=== PATIENT | male | born 1955 | race Caucasian/White ===

== ENCOUNTER 2021-02-12 09:44 | Day surgery (SDC) | payer BC ==
[2021-02-12] MEDS ORDERED: Sodium Chloride 0.9% 10 ML Syringe FLUSH PRN (09:45)
[2021-02-12] MEDS ORDERED: Lactated Ringers 1,000 ML IV SCH (09:45)
[2021-02-12] MEDS ORDERED: Midazolam 1 MG/ML 2 ML SDV ONE (10:38)
[2021-02-12] MEDS ORDERED: Propofol 200 MG/20 ML SDV ONE (10:38)
--- NOTE | 2021-02-12 10:41 | PCM.PN ---
- General Info Date of Service: 02/12/21 - Review of Systems Systems Review Comment:: 65-year-old male here for screening colonoscopy. His last colon exam was almost 10 years ago. He is medically stable to proceed today. His recent history and physical is reviewed and no significant changes are noted. I have discussed the proposed colonoscopy with the patient. Risks and possible complications discussed. Patient agrees to proceed. - Patient Data Vitals - Most Recent: Last Vital Signs Temp 98.1 F 02/12/21 10:09 Pulse 63 02/12/21 10:09 Resp 16 02/12/21 10:09 BP 112/70 02/12/21 10:09 Pulse Ox 99 02/12/21 10:09 Weight - Most Recent: 92.986 kg Med Orders - Current: Current Medications Lactated Ringer's (Ringers, Lactated) 1,000 mls @ 50 mls/hr IV ASDIRECTED [facility] Last Admin: 02/12/21 10:31 Dose: 50 mls/hr Documented by: Sodium Chloride (Sodium Chloride 0.9% 10 Ml Syringe) 10 ml FLUSH Q8HR PRN PRN Reason: keep vein open Sepsis Event Note - Focused Exam Vital Signs: Vital Signs Temp Pulse Resp BP Pulse Ox 02/12/21 10:09 98.1 F 63 16 112/70 99 - Problem List Review Problem List Initiated/Reviewed/Updated: Yes - My Orders Last 24 Hours: My Active Orders 02/11/21 15:56 Resuscitation Status Routine 02/12/21 Breakfast Nothing Per Oral Diet [DIET] 02/12/21 09:45 Peripheral IV Care [RC] . DIRECTED Lactated Ringers [Ringers, Lactated] 1,000 ml IV ASDIRECTED Sodium Chloride 0.9% [Saline Flush] 10 ml FLUSH Q8HR PRN Peripheral IV Insertion Adult [OM.PC] Routine 02/12/21 10:00 Patient to Empty Bladder [RC] ASDIRECTED 02/12/21 10:45 Verify Patient Consent Obtain [RC] ASDIRECTED - Assessment Assessment:: Colon cancer screening - Plan Plan:: Colonoscopy
--- NOTE | 2021-02-12 11:22 | PCM.OPNOTE ---
- General Post-Op/Procedure Note Date of Surgery/Procedure: 02/12/21 Operative Procedure(s): Colonoscopy Findings: Normal Colon Pre Op Diagnosis: Colon cancer screening Post-Op Diagnosis: Normal Colon Anesthesia Technique: MAC Primary Surgeon: James Queen Pathology: none EBL in mLs: 0 Complications: None Condition: Good
--- NOTE | 2021-02-12 15:11 | OR ---
DATE OF SURGERY: 02/12/2021 SURGEON: James Queen MD PREOPERATIVE DIAGNOSIS: Colon cancer screening. POSTOPERATIVE DIAGNOSIS: Normal colon. OPERATION PERFORMED: Colonoscopy. INDICATIONS FOR SURGERY: This 65-year-old male comes for screening colonoscopy. It has been several years since his last colon exam. FINDINGS: The patient's colon appears normal. No polyps or other lesions are seen in the colon or rectum. DESCRIPTION OF PROCEDURE: The patient was taken to the operating room. He was given intravenous sedation, and with him in the left lateral decubitus position, digital rectal exam was performed showing no rectal masses. The Olympus colonoscope was inserted into the rectum. Retroflexed examination of the rectal canal was performed. The scope was then carefully advanced under direct visualization through the entire length of the colon until the cecum is reached. Cecal acquisition is confirmed by noting normal internal cecal anatomy including appendiceal orifice and the ileocecal valve. The light was also noted to transilluminate the abdominal wall in the right lower quadrant. After examining the cecum, the scope was slowly withdrawn sequentially re-examining the colonic segments until the entire colon and rectum had been fully examined. The scope was removed, and the patient was taken from the operating room in satisfactory condition. ESTIMATED BLOOD LOSS: 0. COMPLICATIONS: None. PROGNOSIS: Good. /[id number]/MODL
== END 2021-02-12 12:05 | disposition home or self-care (01) ==
LOC: KA.SDS 09:44
PROVIDERS: ATTEND Surgery
DX: Z12.11 Encounter for screening for malignant neoplasm of colon (principal); G47.33 Obstructive sleep apnea (adult) (pediatric); Z79.899 Other long term (current) drug therapy; Z90.49 Acquired absence of other specified parts of digestive tract; Z98.890 Other specified postprocedural states
CPT/HCPCS: J2250; J2704; J7120

== ENCOUNTER 2025-01-10 07:37 | Day surgery (SDC) | payer MEDICARE ==
[2025-01-10] MEDS: Sodium Chloride 0.9% 10 ML Syringe FLUSH PRN (08:35)
[2025-01-10] MEDS: Lactated Ringers 1,000 ML IV SCH (08:35)
[2025-01-10] MEDS ORDERED: Propofol 200 MG/20 ML SDV ONE (09:06)
[2025-01-10] MEDS ORDERED: Midazolam 1 MG/ML 2 ML SDV ONE (09:06)
== END 2025-01-10 11:12 | disposition home or self-care (01) ==
LOC: KA.SDS 07:37
PROVIDERS: ATTEND Surgery
DX: K22.2 Esophageal obstruction (principal); K31.89 Other diseases of stomach and duodenum; K20.90 Esophagitis, unspecified without bleeding; K29.70 Gastritis, unspecified, without bleeding; E66.3 Overweight; F17.290 Nicotine dependence, other tobacco product, uncomplicated; Z68.34 Body mass index [BMI] 34.0-34.9, adult; Z79.899 Other long term (current) drug therapy
CPT/HCPCS: 00731; 43239; 43249; 88305; J1596; J2250; J2704; J7120